=== PATIENT | female | born 1950 | race Caucasian/White ===

== ENCOUNTER → 2016-10-21 | Outpatient (REF) ==
[~2016-10-21] MED LIST: ACIDOPHILUS PRO1 CAP PO; ADVIL200 MG PO; ALLEGRA ALLERGY60 MG PO; ASPIRIN 32325 MG/TAB PO; BETAPACE 80MG80 MG PO; CALCIUM CARB W/1 TA1 PO; CLARITIN 1010 MG/TAB PO; CORDARONE200 MG/TAB PO; DUO-KAPS1 CAP PO; EPA FISH OIL1 SGL PO; L-LYSINE500 M1 PO; L-LYSINE500 MG PO; LUTEIN6 MG PO; MULTAQ400 MG PO; VITAMIN D 1001000 IU PO; VITAMIN D 50,1.25 MG PO; VITAMIND3 5000 PO; ZYRTEC5 MG PO
== END ==
LOC: WSOH 08:00
DX: Z01.89 Encounter for other specified special examinations (principal)

== ENCOUNTER 2017-01-05 08:28 | Inpatient (IN) | payer BC, MEDICARE ==
[~2017-01-05] VITALS: Ht 157.5 cm; Wt 85.5 kg
[~2017-01-05 08:28] MED LIST changes: -CORDARONE200 MG/TAB PO; -VITAMIN D 1001000 IU PO
[2017-01-05 08:40] VITALS: BP 157/76; PULSE 63; TEMP 98.5
[2017-01-05] MEDS ORDERED: VITAMIN D 1001000 IU PO (09:48)
[2017-01-05 10:05] LABS: HEMATOCRIT 38.7 % (37.0-47.0); HEMOGLOBIN 12.8 g/dl (12.5-16.0); MEAN CELL VOLUME 81 fl (80.0-100.0); MEAN CORPUSCULAR HEMOGLOBIN 27 pg (27.0-31.0); MEAN CORPUSCULAR HGB CONC 33 g/dl (33.0-37.0); MEAN PLATELET VOLUME 11.9 fl (7.4-10.4); PLATELET COUNT 286 K/mm3 (130-400); RED BLOOD COUNT 4.81 M/mm3 (4.10-5.30); REDCELL DISTRIBUTION WIDTH-CV 14.6 % (11.5-14.5); WHITE BLOOD COUNT 6.3 K/mm3 (4.8-10.8)
[2017-01-05 10:10] LABS: INR 0.9 (0.8-3.0); PROTHROMBIN TIME 10.4 SECONDS (9.7-12.8)
[2017-01-05 10:16] LABS: ADJUSTED CALCIUM 8.9 mg/dL (8.4-10.2); BILIRUBIN,TOTAL 0.6 mg/dL (0.0-1.0); CALCIUM 8.9 mg/dL (8.4-10.2); CREATININE, serum 0.58 mg/dL (0.52-1.25); MAGNESIUM 1.8 mg/dL (1.6-2.3); POTASSIUM 3.4 mmol/L (3.4-5.0)
[2017-01-05 11:52] VITALS: BP 136/87; PULSE 63; TEMP 98.2
[2017-01-05 13:04] LABS: BILIRUBIN,DIRECT 0.6 mg/dL (0.0-0.4)
[2017-01-05 13:32] LABS: THYROID STIMULATING HORMONE 2.16 uIU/mL (0.465-4.680)
[2017-01-05 15:22] VITALS: BP 135/76; PULSE 60; TEMP 98.4
[2017-01-05 21:02] VITALS: BP 154/72; PULSE 65; TEMP 97.7
[2017-01-05 23:34] VITALS: BP 124/58; PULSE 58; TEMP 98.7
[2017-01-06] VITALS (7 sets, daily range): BP systolic 122–150; BP diastolic 53–81; PULSE 55–87; TEMP 97.6–98.7
[2017-01-07 03:29] VITALS: BP 128/57; PULSE 63; TEMP 98.5
[2017-01-07 07:20] VITALS: BP 139/53; PULSE 63; TEMP 97.7
[2017-01-07 11:04] VITALS: BP 132/80; PULSE 75; TEMP 98.2
[2017-01-07 16:32] VITALS: BP 118/49; PULSE 69; TEMP 97.9
[2017-01-07 23:25] VITALS: BP 143/61; PULSE 68; TEMP 97.6
[2017-01-08 02:33] VITALS: BP 123/63; PULSE 63; TEMP 97.7
[2017-01-08 08:43] VITALS: BP 114/52; PULSE 69; TEMP 97.5
[2017-01-08 11:19] VITALS: BP 125/74; PULSE 64; TEMP 97.9
[2017-01-08 15:41] VITALS: BP 117/70; PULSE 66; TEMP 97.7
[2017-01-08 19:09] VITALS: BP 152/65; PULSE 64; TEMP 98.3
[2017-01-08 22:45] VITALS: BP 151/55; PULSE 69; TEMP 98.7
[2017-01-09 02:41] VITALS: BP 129/61; PULSE 67; TEMP 98.8
[2017-01-09 08:20] VITALS: BP 137/56; PULSE 64; TEMP 98
[2017-01-09 11:30] VITALS: BP 154/66; PULSE 62; TEMP 97.9
[2017-01-09] MEDS ORDERED: CORDARONE200 MG/TAB PO (14:38)
== END 2017-01-09 15:02 | disposition home or self-care (01) | DRG 310 ==
LOC: MEDICAL 08:28
PROVIDERS: Nurse Practitioner
DX: I48.0 Paroxysmal atrial fibrillation (principal); Z85.038 Personal history of other malignant neoplasm of large intestine

== ENCOUNTER 2017-02-27 01:35 | Observation (INO) | payer BC, MEDICARE ==
[~2017-02-27] VITALS: Ht 157.5 cm; Wt 83.2 kg
[~2017-02-27 01:35] MED LIST changes: +CORDARONE200 MG/TAB PO; +VITAMIN D 1001000 IU PO
[2017-02-27 02:46] LABS: BASO % 0.4 % (0.0-2.0); EOS # 0.2 (0.0-0.7); EOS % 1.5 % (0-4.0); GRAN # 9.1 (1.4-6.5); GRAN % 83.4 % (42.2-75.2); HEMATOCRIT 43.1 % (37.0-47.0); HEMOGLOBIN 13.9 g/dl (12.5-16.0); LYMPH % 8.7 % (20.0-51.0); MEAN CELL VOLUME 81 fl (80.0-100.0); MEAN CORPUSCULAR HEMOGLOBIN 26 pg (27.0-31.0); MEAN CORPUSCULAR HGB CONC 32 g/dl (33.0-37.0); MEAN PLATELET VOLUME 11.4 fl (7.4-10.4); MONO # 0.6 (0.1-0.6); MONO % 5.6 % (1.7-9.3); PLATELET COUNT 266 K/mm3 (130-400); REDCELL DISTRIBUTION WIDTH-CV 15.3 % (11.5-14.5); WHITE BLOOD COUNT 10.9 K/mm3 (4.8-10.8)
[2017-02-27 02:58] LABS: ADJUSTED CALCIUM 8.8 mg/dL (8.4-10.2); ALANINE AMINOTRANSFERASE 36 U/L (9-52); ALBUMIN 4.3 gm/dL (3.5-5.0); ALKALINE PHOSPHATASE 89 U/L (50-136); ANION GAP 12 mmol/L (7-16); BILIRUBIN,TOTAL 0.9 mg/dL (0.0-1.0); BLOOD UREA NITROGEN 14 mg/dL (7-17); C-REACTIVE PROTEIN 1.7 mg/dL (0.0-0.9); CARBON DIOXIDE 24 mmol/L (22-30); CHLORIDE 102 mmol/L (98-107); CREATININE, serum 0.67 mg/dL (0.52-1.25); GLUCOSE 119 mg/dL (74-106); LIPASE 26 U/L (23-300); POTASSIUM 3.6 mmol/L (3.4-5.0); SODIUM 138 mmol/L (137-145); TOTAL PROTEIN 7.4 gm/dL (6.4-8.2)
[2017-02-27 03:07] LABS: TROPONIN-I < 0.012 ng/mL (0.000-0.034)
[2017-02-27 03:24] LABS: PH 7 (5-8); SQUAMOUS EPITHELIAL 0-2 /hpf; URINE APPEARANCE Clear; URINE BACTERIA Rare /hpf; URINE BILIRUBIN Negative (NEGATIVE); URINE BLOOD Negative (NEGATIVE); URINE COLOR Yellow; URINE GLUCOSE Negative (NEGATIVE); URINE KETONE Negative (NEGATIVE); URINE RBC 0-2 /hpf; URINE UROBILINOGEN Negative (NEGATIVE); URINE WBC 0-2 /hpf
[2017-02-27 09:15] VITALS: BP 121/46; PULSE 72; TEMP 98.3
[2017-02-27 12:52] LABS: MEAN CELL VOLUME 83 fl (80.0-100.0); MEAN CORPUSCULAR HEMOGLOBIN 26 pg (27.0-31.0); MEAN CORPUSCULAR HGB CONC 32 g/dl (33.0-37.0); MEAN PLATELET VOLUME 12.1 fl (7.4-10.4); PLATELET COUNT 267 K/mm3 (130-400); RED BLOOD COUNT 4.94 M/mm3 (4.10-5.30); REDCELL DISTRIBUTION WIDTH-CV 15.7 % (11.5-14.5); WHITE BLOOD COUNT 10.8 K/mm3 (4.8-10.8)
[2017-02-27 12:55] LABS: ADD PATHOLOGY DIFF REVIEW NO
[2017-02-27 13:08] LABS: CALCIUM 8.1 mg/dL (8.4-10.2); CREATININE, serum 0.73 mg/dL (0.52-1.25); POTASSIUM 3.7 mmol/L (3.4-5.0)
[2017-02-27 13:29] VITALS: BP 114/57; PULSE 68; TEMP 98.3
[2017-02-27 13:33] LABS: BAND 27 % (0-10); EOSINOPHIL 1 % (0-4); NEUTROPHILS 65 % (42.0-75.2); PLATELET ESTIMATE NORMAL (NORMAL); TOTAL CELLS COUNTED 100
== END 2017-02-27 18:35 | disposition home or self-care (01) ==
LOC: COL.ER 01:35 → SURG 04:00 → JCC 05:36
PROVIDERS: Emergency Medicine; Surgery
DX: K56.60 Unspecified intestinal obstruction (principal); I48.0 Paroxysmal atrial fibrillation; Z90.49 Acquired absence of other specified parts of digestive tract; Z93.2 Ileostomy status; Z87.19 Personal history of other diseases of the digestive system
CPT/HCPCS: G0378; J2270; J2405; J7030; J7042; Q9967

== ENCOUNTER 2017-03-04 21:33 | Inpatient (IN) | payer BC, MEDICARE ==
[~2017-03-04] VITALS: Ht 157.5 cm; Wt 83.6 kg
[~2017-03-04 21:33] MED LIST changes: +ZYRTEC 10MG10 MG PO; -ZYRTEC5 MG PO
[2017-03-04 22:57] LABS: BASO % 0.3 % (0.0-2.0); EOS # 0.2 (0.0-0.7); EOS % 1.4 % (0-4.0); GRAN # 10.3 (1.4-6.5); GRAN % 81.4 % (42.2-75.2); HEMATOCRIT 43.1 % (37.0-47.0); HEMOGLOBIN 14.3 g/dl (12.5-16.0); LYMPH # 1.4 (1.2-3.4); LYMPH % 11.2 % (20.0-51.0); MEAN CELL VOLUME 79 fl (80.0-100.0); MEAN CORPUSCULAR HEMOGLOBIN 26 pg (27.0-31.0); MEAN CORPUSCULAR HGB CONC 33 g/dl (33.0-37.0); MEAN PLATELET VOLUME 11.1 fl (7.4-10.4); MONO # 0.7 (0.1-0.6); MONO % 5.3 % (1.7-9.3); PLATELET COUNT 298 K/mm3 (130-400); RED BLOOD COUNT 5.44 M/mm3 (4.10-5.30); REDCELL DISTRIBUTION WIDTH-CV 15.2 % (11.5-14.5)
[2017-03-04 23:10] LABS: ALBUMIN 4.4 gm/dL (3.5-5.0); BILIRUBIN,TOTAL 0.8 mg/dL (0.0-1.0); CALCIUM 9.4 mg/dL (8.4-10.2); CREATININE, serum 0.7 mg/dL (0.52-1.25); POTASSIUM 3.3 mmol/L (3.4-5.0); TOTAL PROTEIN 7.6 gm/dL (6.4-8.2)
[2017-03-05 02:00] VITALS: BP 134/71; PULSE 79; TEMP 98.8
--- NOTE | 2017-03-05 02:00 | NUR ---
To unit via wheelchair. IV NS infusing per gravithy to R hand site without difficulty. Oriented to room, plan of care and call light. Pt ambulates into bathroom without assistance, verbalizes understanding of bathroom call light for assistance.
--- NOTE | 2017-03-05 02:15 | NUR ---
Pt reports "this is my second trip in here, I'm starting to have some sucess"
[2017-03-05 02:37] VITALS: BP 134/71; PULSE 79; TEMP 98.8
[2017-03-05 07:45] VITALS: BP 142/63; PULSE 72; TEMP 97.9
--- NOTE | 2017-03-05 09:10 | NUR ---
Initial visit; Patient thanked [employer] Consultant for looking in on her and offering God's blessings and keeping her in [employer] Consultant's prayers.
[2017-03-05 12:00] VITALS: BP 123/64; PULSE 65
[2017-03-05 16:00] VITALS: BP 135/74; PULSE 80; TEMP 97.9
--- NOTE | 2017-03-05 17:15 | NUR ---
Dr. Ocasio to patient's room, discusses plan of care and discharge instructions with patient and spouse.
--- NOTE | 2017-03-05 17:45 | NUR ---
Discharge instructions reviewed and signed. Patient discharged home in stable condition.
[2017-07-29] MEDS ORDERED: ZOFRAN ODT4 MG PO (12:15)
[2017-07-29] MEDS ORDERED: NORCO 325 MG-51 TAB PO (14:47)
[2019-01-17] MEDS ORDERED: ALLEGRA 60MG TA60 MG PO (11:53)
[2019-01-17] MEDS ORDERED: GLUCOSAMINE & C1 TAB PO (11:56)
== END 2017-03-05 17:45 | disposition home or self-care (01) | DRG 390 ==
LOC: COL.ER 21:33 → OB 03-05 00:51 → COL.ER 03-05 00:51 → OB 03-05 17:45
PROVIDERS: Emergency Medicine; ADMIT Surgery
DX: K56.69 Other intestinal obstruction (principal); Z90.49 Acquired absence of other specified parts of digestive tract
CPT/HCPCS: J2405; J3010; J7030; Q9967

== ENCOUNTER 2017-05-27 08:19 | Inpatient (IN) | payer BC, MEDICARE ==
[~2017-05-27] VITALS: Ht 157.5 cm; Wt 83.3 kg
[~2017-05-27 08:19] MED LIST changes: -ZYRTEC 10MG10 MG PO; +ZYRTEC5 MG PO
[2017-05-27 08:50] LABS: COLLECTION METHOD CLEAN CATCH
[2017-05-27 08:51] LABS: BASO % 0.3 % (0.0-2.0); EOS # 0.1 (0.0-0.7); GRAN # 9.3 (1.4-6.5); GRAN % 83.4 % (42.2-75.2); HEMOGLOBIN 14.5 g/dl (12.5-16.0); LYMPH # 1.1 (1.2-3.4); LYMPH % 9.8 % (20.0-51.0); MEAN CELL VOLUME 82 fl (80.0-100.0); MEAN CORPUSCULAR HEMOGLOBIN 27 pg (27.0-31.0); MEAN CORPUSCULAR HGB CONC 33 g/dl (33.0-37.0); MEAN PLATELET VOLUME 11.5 fl (7.4-10.4); MONO # 0.6 (0.1-0.6); MONO % 5.1 % (1.7-9.3); PLATELET COUNT 287 K/mm3 (130-400); WHITE BLOOD COUNT 11.1 K/mm3 (4.8-10.8)
[2017-05-27 09:08] LABS: ALBUMIN 4.7 gm/dL (3.5-5.0); BILIRUBIN,TOTAL 0.9 mg/dL (0.0-1.0); CALCIUM 9.6 mg/dL (8.4-10.2); CREATININE, serum 0.72 mg/dL (0.52-1.25); POTASSIUM 3.5 mmol/L (3.4-5.0); TOTAL PROTEIN 7.5 gm/dL (6.4-8.2)
[2017-05-27 09:11] LABS: MUCOUS Present /lpf; PH 7 (5-8); URINE APPEARANCE Hazy; URINE BACTERIA Rare /hpf; URINE BILIRUBIN Negative (NEGATIVE); URINE BLOOD Negative (NEGATIVE); URINE COLOR Yellow; URINE GLUCOSE Negative (NEGATIVE); URINE KETONE Negative (NEGATIVE); URINE LEUKOCYTE ESTERASE Negative (NEGATIVE); URINE PROTEIN(semi-quant) 2+ (NEGATIVE); URINE UROBILINOGEN Negative (NEGATIVE); URINE WBC 0-2 /hpf
[2017-05-27] MEDS ORDERED: ASPIRIN 81M81 MG/TA2 PO (11:21)
[2017-05-27 15:43] VITALS: BP 130/62; PULSE 65; TEMP 98.8
[2017-05-27 19:50] VITALS: BP 132/55; PULSE 66; TEMP 98.1
[2017-05-27 23:31] VITALS: BP 105/43; PULSE 59; TEMP 97.9
[2017-05-28 04:08] VITALS: BP 122/45; PULSE 59; TEMP 98.4
[2017-05-28 08:00] VITALS: BP 143/62; PULSE 59; TEMP 98
== END 2017-05-28 11:00 | disposition home or self-care (01) | DRG 390 ==
LOC: COL.ER 08:19 → MEDICAL 10:14
PROVIDERS: Emergency Medicine
DX: K56.600 Partial intestinal obstruction, unspecified as to cause (principal); I48.0 Paroxysmal atrial fibrillation
CPT/HCPCS: J2270; J2405; J2550; J7030; J7050; J7120; Q9967

== ENCOUNTER 2017-07-09 05:39 | Emergency (ER) | payer BC, MEDICARE ==
[~2017-07-09] VITALS: Ht 157.5 cm; Wt 77.3 kg
[~2017-07-09 05:39] MED LIST changes: +ASPIRIN 81M81 MG/TA2 PO; +ZYRTEC 10MG10 MG PO; -ZYRTEC5 MG PO
[2017-07-09 05:49] VITALS: TEMP 98.2
[2017-07-09 07:08] LABS: BASO % 0.3 % (0.0-2.0); EOS # 0.1 (0.0-0.7); EOS % 0.6 % (0-4.0); GRAN # 10.3 (1.4-6.5); GRAN % 88.8 % (42.2-75.2); HEMATOCRIT 43.1 % (37.0-47.0); LYMPH # 0.6 (1.2-3.4); MEAN CELL VOLUME 82 fl (80.0-100.0); MEAN CORPUSCULAR HEMOGLOBIN 27 pg (27.0-31.0); MEAN CORPUSCULAR HGB CONC 33 g/dl (33.0-37.0); MONO # 0.6 (0.1-0.6); PLATELET COUNT 268 K/mm3 (130-400); RED BLOOD COUNT 5.26 M/mm3 (4.10-5.30); REDCELL DISTRIBUTION WIDTH-CV 15.1 % (11.5-14.5)
[2017-07-09 07:19] LABS: COLLECTION METHOD CLEAN CATCH
[2017-07-09 07:21] LABS: ALBUMIN 4.6 gm/dL (3.5-5.0); BILIRUBIN,TOTAL 0.8 mg/dL (0.0-1.0); CALCIUM 9.5 mg/dL (8.4-10.2); CREATININE, serum 0.74 mg/dL (0.52-1.25); POTASSIUM 3.8 mmol/L (3.4-5.0); TOTAL PROTEIN 7.5 gm/dL (6.4-8.2)
[2017-07-09 07:32] LABS: MUCOUS Present /lpf; PH 8 (5-8); SQUAMOUS EPITHELIAL 0-2 /hpf; URINE APPEARANCE Clear; URINE BACTERIA None Seen /hpf; URINE BILIRUBIN Negative (NEGATIVE); URINE BLOOD Negative (NEGATIVE); URINE COLOR Amber; URINE GLUCOSE Negative (NEGATIVE); URINE KETONE Negative (NEGATIVE); URINE LEUKOCYTE ESTERASE Trace (NEGATIVE); URINE NITRATE Negative (NEGATIVE); URINE PROTEIN(semi-quant) 1+ (NEGATIVE); URINE UROBILINOGEN Negative (NEGATIVE)
[2017-07-09 10:37] VITALS: BP 149/79; PULSE 70
== END 2017-07-09 10:37 | disposition home or self-care (01) ==
LOC: COL.ER 05:39
PROVIDERS: Emergency Medicine
DX: R10.84 Generalized abdominal pain (principal); Z93.2 Ileostomy status; Z87.19 Personal history of other diseases of the digestive system; Z90.49 Acquired absence of other specified parts of digestive tract; Z88.2 Allergy status to sulfonamides; Z79.82 Long term (current) use of aspirin
CPT/HCPCS: J2270; J2405; J7030

== ENCOUNTER 2017-09-28 13:16 | Emergency (ER) | payer BC, MEDICARE ==
[~2017-09-28] VITALS: Ht 157.5 cm; Wt 78.2 kg
[~2017-09-28 13:16] MED LIST changes: +NORCO 325 MG-51 TAB PO; +ZOFRAN ODT4 MG PO
[2017-09-28 13:50] LABS: COLLECTION METHOD CLEAN CATCH
[2017-09-28 14:00] LABS: MUCOUS Present /lpf; PH 5 (5-8); URINE APPEARANCE Cloudy; URINE BACTERIA Rare /hpf; URINE BILIRUBIN Negative (NEGATIVE); URINE BLOOD 3+ (NEGATIVE); URINE COLOR Amber; URINE GLUCOSE Negative (NEGATIVE); URINE KETONE Trace (NEGATIVE); URINE LEUKOCYTE ESTERASE 1+ (NEGATIVE); URINE NITRATE Negative (NEGATIVE); URINE PROTEIN(semi-quant) 2+ (NEGATIVE); URINE RBC >50 /hpf
[2017-09-28 14:16] LABS: BASO # 0.1 (0.0-0.2); BASO % 0.5 % (0.0-2.0); EOS % 0.2 % (0-4.0); GRAN # 13.9 (1.4-6.5); GRAN % 82.4 % (42.2-75.2); LYMPH # 1.3 (1.2-3.4); LYMPH % 7.4 % (20.0-51.0); MEAN CELL VOLUME 80 fl (80.0-100.0); MEAN CORPUSCULAR HGB CONC 33 g/dl (33.0-37.0); MEAN PLATELET VOLUME 11.8 fl (7.4-10.4); MONO # 1.4 (0.1-0.6); MONO % 8.3 % (1.7-9.3); PLATELET COUNT 447 K/mm3 (130-400); RED BLOOD COUNT 4.26 M/mm3 (4.10-5.30); REDCELL DISTRIBUTION WIDTH-CV 15.9 % (11.5-14.5)
[2017-09-28 14:17] LABS: HEMOGLOBIN 11.3 g/dl (12.5-16.0); MEAN CORPUSCULAR HEMOGLOBIN 27 pg (27.0-31.0)
[2017-09-28 14:29] LABS: ALBUMIN 3.6 gm/dL (3.5-5.0); BILIRUBIN,TOTAL 1.7 mg/dL (0.0-1.0); CALCIUM 8.9 mg/dL (8.4-10.2); CREATININE, serum 0.63 mg/dL (0.52-1.25); TOTAL PROTEIN 7.6 gm/dL (6.4-8.2)
[2017-09-28 14:43] LABS: POTASSIUM 3.3 mmol/L (3.4-5.0)
[2017-09-28 14:49] LABS: COLLECTION METHOD CATHETER
[2017-09-28 15:12] LABS: C-REACTIVE PROTEIN 32.3 mg/dL (0.0-0.9)
[2017-09-28 15:16] LABS: MUCOUS Present /lpf; PH 5 (5-8); SQUAMOUS EPITHELIAL 0-2 /hpf; URINE APPEARANCE Hazy; URINE BACTERIA None Seen /hpf; URINE BILIRUBIN Positive (NEGATIVE); URINE BLOOD 3+ (NEGATIVE); URINE COLOR Amber; URINE GLUCOSE Negative (NEGATIVE); URINE KETONE Trace (NEGATIVE); URINE LEUKOCYTE ESTERASE Trace (NEGATIVE); URINE NITRATE Negative (NEGATIVE); URINE PROTEIN(semi-quant) 2+ (NEGATIVE); URINE RBC >50 /hpf; URINE UROBILINOGEN >=4.0 mg/dL (NEGATIVE)
[2017-09-28 19:23] VITALS: BP 178/84; PULSE 91; TEMP 99.1
== END 2017-09-28 19:15 | disposition short-term general hospital (02) ==
LOC: COL.ER 13:16
PROVIDERS: Emergency Medicine
DX: R10.30 Lower abdominal pain, unspecified (principal); I48.91 Unspecified atrial fibrillation; Z85.038 Personal history of other malignant neoplasm of large intestine; Z90.49 Acquired absence of other specified parts of digestive tract
CPT/HCPCS: J2270; J2543; J7030; Q9967

== ENCOUNTER → 2018-08-25 | Outpatient (CLI) | payer BC ==
[~2018-08-25] VITALS: Ht 157.5 cm; Wt 87.3 kg
[2018-08-25 13:52] VITALS: BP 201/92; PULSE 79
[2018-08-25 15:15] VITALS: BP 172/98; PULSE 77
--- NOTE | 2018-08-25 15:40 | NUR ---
PT TAKEN DOWN TO LOBBY VIA WHEELCHAIR. ASSISTED INTO POV BY .
== END ==
LOC: COL.RAD 13:28
DX: M54.5 Low back pain (principal); M79.604 Pain in right leg
CPT/HCPCS: J3301

== ENCOUNTER → 2018-08-30 | Outpatient (CLI) | payer BC | LOC: MC.RAD 11:02 | DX: Z12.31 Encounter for screening mammogram for malignant neoplasm of breast (principal) ==

== ENCOUNTER → 2018-09-10 | Outpatient (CLI) | payer BC ==
[~2018-09-10] VITALS: Ht 157.5 cm; Wt 82.7 kg
[2018-09-10 14:13] VITALS: BP 157/96; PULSE 76
[2018-09-10 14:45] VITALS: BP 165/88; PULSE 83
--- NOTE | 2018-09-10 15:03 | NUR ---
pt out to car per wheelchair. Pain unchanged. Pt up and into car without assistance.
== END ==
LOC: COL.RAD 13:30
DX: M48.061 Spinal stenosis, lumbar region without neurogenic claudication (principal)
CPT/HCPCS: J3301

== ENCOUNTER → 2019-01-19 | Outpatient (CLI) | payer BC ==
[~2019-01-19] VITALS: Ht 157.5 cm; Wt 81.6 kg
[~2019-01-19] MED LIST changes: +ALLEGRA 60MG TA60 MG PO; +GLUCOSAMINE & C1 TAB PO
[2019-01-19 13:57] VITALS: BP 169/95; PULSE 77
[2019-01-19 14:45] VITALS: BP 171/89; PULSE 72
--- NOTE | 2019-01-19 15:00 | NUR ---
pt out to car per wheelchair. Denies pain at this time states her back is numb. pt up and into car without assistance.
== END ==
LOC: COL.RAD 13:30
DX: M54.16 Radiculopathy, lumbar region (principal)
CPT/HCPCS: J3301

== ENCOUNTER → 2019-09-07 | Outpatient (CLI) | payer MEDICARE, OTHER | LOC: MC.RAD 10:25 | DX: Z12.31 Encounter for screening mammogram for malignant neoplasm of breast (principal); N63.20 Unspecified lump in the left breast, unspecified quadrant ==

== ENCOUNTER → 2019-09-08 | Outpatient (CLI) | payer MEDICARE, OTHER | LOC: MC.RAD 12:57 | DX: N63.20 Unspecified lump in the left breast, unspecified quadrant (principal) ==

== ENCOUNTER → 2019-09-20 | Outpatient (CLI) | payer MEDICARE, OTHER | LOC: MC.RAD 07:51 | DX: N63.20 Unspecified lump in the left breast, unspecified quadrant (principal) ==

== ENCOUNTER 2020-09-05 08:20 | Emergency (ER) | payer MEDICARE, OTHER ==
[~2020-09-05] VITALS: Ht 157.5 cm; Wt 79.5 kg
[2020-09-05 08:27] VITALS: TEMP 98.1
[2020-09-05 13:34] VITALS: BP 100/73; PULSE 90
[2020-09-06 14:03] LABS: COLLECTION METHOD CLEAN CATCH
[2020-09-06 15:13] LABS: AMORPHOUS CRYSTAL Present /uL; MUCOUS Present /lpf; PH 7 (5-8); SQUAMOUS EPITHELIAL 0-2 /hpf; URINE APPEARANCE Hazy; URINE BACTERIA Rare /hpf; URINE BILIRUBIN Negative (NEGATIVE); URINE BLOOD Negative (NEGATIVE); URINE COLOR Yellow; URINE GLUCOSE Negative (NEGATIVE); URINE KETONE Negative (NEGATIVE); URINE LEUKOCYTE ESTERASE Negative (NEGATIVE); URINE NITRATE Negative (NEGATIVE); URINE PROTEIN(semi-quant) 1+ (NEGATIVE); URINE RBC 0-2 /hpf; URINE UROBILINOGEN Negative (NEGATIVE)
[2020-09-06 15:15] LABS: ALBUMIN 4.1 gm/dL (3.5-5.0); BILIRUBIN,TOTAL 0.8 mg/dL (0.0-1.0); CALCIUM 9.2 mg/dL (8.4-10.2); CREATININE, serum 0.56 (0.52-1.25); POTASSIUM 3.9 mmol/L (3.4-5.0)
[2020-09-07 00:16] LABS: BASO % 0.3 % (0.0-2.0); EOS % 0.3 % (0-4.0); GRAN % 84.9 % (42.2-75.2); HEMATOCRIT 40.3 % (37.0-47.0); HEMOGLOBIN 13.3 g/dl (12.5-16.0); LYMPH % 8.4 % (20.0-51.0); MEAN CELL VOLUME 82 fl (80.0-100.0); MEAN CORPUSCULAR HEMOGLOBIN 27 pg (27.0-31.0); MEAN CORPUSCULAR HGB CONC 33 g/dl (33.0-37.0); MEAN PLATELET VOLUME 11.5 fl (7.4-10.4); MONO % 5.8 % (1.7-9.3); PLATELET COUNT 266 K/mm3 (130-400); REDCELL DISTRIBUTION WIDTH-CV 14.7 % (11.5-14.5)
[2020-09-07 00:17] LABS: MONO # 0.7 (0.1-0.6)
== END 2020-09-05 13:40 | disposition home or self-care (01) ==
LOC: COL.ER 08:20
PROVIDERS: Emergency Medicine
DX: K56.609 Unspecified intestinal obstruction, unspecified as to partial versus complete obstruction (principal); I48.91 Unspecified atrial fibrillation; Z79.82 Long term (current) use of aspirin
CPT/HCPCS: J2270; J7120; Q9967

== ENCOUNTER → 2020-10-22 | Outpatient (CLI) | payer MEDICARE, OTHER | LOC: MC.RAD 09-20 08:45 | DX: Z12.31 Encounter for screening mammogram for malignant neoplasm of breast (principal); Z98.890 Other specified postprocedural states; Z98.82 Breast implant status ==

== ENCOUNTER 2020-11-18 13:40 | Emergency (ER) | payer MEDICARE, OTHER ==
[~2020-11-18] VITALS: Ht 157.5 cm; Wt 81.8 kg
[2020-11-18 13:54] VITALS: TEMP 98.7
[2020-11-18 14:59] LABS: BASO % 0.3 % (0.0-2.0); EOS # 0.3 (0.0-0.7); EOS % 2.4 % (0-4.0); GRAN # 9.1 (1.4-6.5); GRAN % 79.3 % (42.2-75.2); HEMATOCRIT 44.1 % (37.0-47.0); HEMOGLOBIN 14.3 g/dl (12.5-16.0); LYMPH # 1.3 (1.2-3.4); LYMPH % 11.1 % (20.0-51.0); MEAN CELL VOLUME 82 fl (80.0-100.0); MEAN CORPUSCULAR HEMOGLOBIN 26 pg (27.0-31.0); MEAN CORPUSCULAR HGB CONC 32 g/dl (33.0-37.0); MONO # 0.7 (0.1-0.6); MONO % 6.5 % (1.7-9.3); PLATELET COUNT 283 K/mm3 (130-400); RED BLOOD COUNT 5.41 M/mm3 (4.10-5.30); REDCELL DISTRIBUTION WIDTH-CV 14.6 % (11.5-14.5)
[2020-11-18 15:13] LABS: ALBUMIN 4.6 gm/dL (3.5-5.0); BILIRUBIN,TOTAL 0.5 mg/dL (0.0-1.0); C-REACTIVE PROTEIN 1.6 mg/dL (0.0-0.9); CALCIUM 9.2 mg/dL (8.4-10.2); CREATININE, serum 0.53 (0.52-1.25); MAGNESIUM 1.9 mg/dL (1.6-2.3); POTASSIUM 3.7 mmol/L (3.4-5.0); TOTAL PROTEIN 8.2 gm/dL (6.4-8.2)
[2020-11-18 15:14] LABS: PROTHROMBIN TIME 10.7 SECONDS (9.7-12.8)
[2020-11-18 15:21] LABS: COLLECTION METHOD CLEAN CATCH
[2020-11-18 15:22] LABS: TROPONIN-I 0.028 ng/mL (0.000-0.035)
[2020-11-18 15:28] LABS: PH 6 (5-8); SQUAMOUS EPITHELIAL None Seen /hpf; URINE APPEARANCE Clear; URINE BACTERIA None Seen /hpf; URINE BILIRUBIN Negative (NEGATIVE); URINE BLOOD Negative (NEGATIVE); URINE COLOR Yellow; URINE GLUCOSE Negative (NEGATIVE); URINE KETONE 1+ (NEGATIVE); URINE LEUKOCYTE ESTERASE Negative (NEGATIVE); URINE NITRATE Negative (NEGATIVE); URINE PROTEIN(semi-quant) Negative (NEGATIVE); URINE RBC 0-2 /hpf; URINE UROBILINOGEN Negative (NEGATIVE)
[2020-11-18 17:30] VITALS: BP 145/80; PULSE 90
== END 2020-11-18 17:40 | disposition home or self-care (01) ==
LOC: COL.ER 13:40 → SURG 16:07
PROVIDERS: Emergency Medicine
DX: I48.0 Paroxysmal atrial fibrillation (principal); K56.609 Unspecified intestinal obstruction, unspecified as to partial versus complete obstruction; Z88.2 Allergy status to sulfonamides; Z87.891 Personal history of nicotine dependence; Z90.49 Acquired absence of other specified parts of digestive tract
CPT/HCPCS: 99214; J2270; J2405; J7030; Q9967